=== PATIENT | female | born 1980 | race Caucasian/White ===

== ENCOUNTER → 2016-12-22 | Day surgery (SDC) | payer OTHER ==
[~2016-12-22] VITALS: Ht 152.4 cm; Wt 106.7 kg
[2016-12-22 11:51] LABS: HCT 39.3 % (37.0-47.0); HGB 12.9 g/dl (12.5-16.0); MCH 25.7 pg (25.0-31.0); MCHC 32.8 g/dL (32.0-36.0); MCV 78.4 fL (78.0-100.0); RBC 5.01 M/uL (4.20-5.40); WBC 9.1 K/uL (4.0-10.5)
[2016-12-22 12:08] LABS: INR 0.93 (0.9-1.2); PROTHROMBIN TIME 12.1 SECONDS (11.7-14.0); PTT 25.2 SECONDS (23.2-31.4)
[2016-12-22 12:25] LABS: ALBUMIN 3.9 g/dL (3.5-5.0); BILIRUBIN - TOTAL 0.2 mg/dL (0.1-1.0); CREATININE 0.4 mg/dL (0.5-1.0); GLOBULIN (CALCULATION) 3.5 g/dL (2.2-4.2); POTASSIUM 3.9 mmol/L (3.5-5.1); TOTAL PROTEIN 7.4 g/dL (6.4-8.3)
[2016-12-22 12:41] LABS: TSH (THYROID STIM HORMONE) 3.62 uIU/mL (0.270-4.200); VITAMIN D (25-OH) 17.26 ng/mL (20.0-)
[2016-12-22 12:45] LABS: FOLIC ACID (SERUM) 11.6 ng/mL (4.4-31.0)
== END | disposition home or self-care (01) ==
LOC: FAS 08:45
PROVIDERS: Surgery
DX: K29.50 Unspecified chronic gastritis without bleeding (principal); D64.9 Anemia, unspecified; F32.9 Major depressive disorder, single episode, unspecified; E66.01 Morbid (severe) obesity due to excess calories; E11.9 Type 2 diabetes mellitus without complications; I10 Essential (primary) hypertension; E78.5 Hyperlipidemia, unspecified; G47.30 Sleep apnea, unspecified; F41.9 Anxiety disorder, unspecified; G43.909 Migraine, unspecified, not intractable, without status migrainosus; E55.9 Vitamin D deficiency, unspecified; K21.9 Gastro-esophageal reflux disease without esophagitis; Z98.890 Other specified postprocedural states; Z79.899 Other long term (current) drug therapy; Z87.891 Personal history of nicotine dependence; Z88.5 Allergy status to narcotic agent; Z68.41 Body mass index [BMI] 40.0-44.9, adult
CPT/HCPCS: 36415; 80053; 80061; 82306; 82607; 82728; 82746; 83036; 83540; 83550; 84425; 84443; 84703; 85610; 85730; 88305; 88312; J2704

== ENCOUNTER 2021-07-02 07:43 | Emergency (ER) | payer OTHER ==
[2021-07-02 08:23] LABS: BILIRUBIN NEGATIVE (NEGATIVE); BLOOD 3+ Ery/uL (NEGATIVE); COLOR YELLOW (YELLOW); GLUCOSE (U) NORMAL (NORMAL); LEUKOCYTES 2+ Leu/uL (NEGATIVE); NITRITE POSITIVE (NEGATIVE); PROTEIN 1+ mg/dL (NEGATIVE); SPECIFIC GRAVITY 1.025 (1.001-1.030); UROBILINOGEN 0.2 mg/dL (0.2-1.0)
[2021-07-02 08:29] LABS: CLARITY HAZY (CLEAR)
[2021-07-02 08:31] LABS: BASOPHIL 0.3 % (0-2); EOSINOPHIL 1.6 % (0-5); HCT 43.9 % (37.0-47.0); HGB 14.2 g/dl (12.5-16.0); LYMPHOCYTE 16.3 % (15-48); MCH 25.8 pg (25.0-31.0); MCHC 32.3 g/dL (32.0-36.0); MCV 79.7 fL (78.0-100.0); MONOCYTE 5.2 % (0-12); MPV 8.9 fL (6.0-9.5); NEUTROPHIL 76.1 % (41-80); NRBC 0; PLT 310 K/uL (150-400); RBC 5.51 M/uL (4.20-5.40); RDW 13.2 % (11.5-14.0); WBC 10.4 K/uL (4.0-10.5)
[2021-07-02 08:31] LABS: URINARY RBC TNTC; URINARY WBC TNTC
[2021-07-02 08:32] LABS: BACTERIA 3+
[2021-07-02 08:51] LABS: ALBUMIN 3.4 g/dL (3.4-5.0); BILIRUBIN - TOTAL 0.3 mg/dL (0.2-1.0); BUN/CREAT RATIO (CALC) 19.6 RATIO; CREATININE 0.46 mg/dL (0.51-0.95); GLOBULIN (CALCULATION) 4.3 g/dL; POTASSIUM 4.1 mmol/L (3.5-5.1); TOTAL PROTEIN 7.7 g/dL (6.4-8.2)
[2021-07-02] MEDS ORDERED: NORCO 5-325 TA1 EACH PO (09:34)
[2021-07-02] MEDS ORDERED: BACTRIM DS TAB1 EACH PO (09:34)
[2021-07-02] MEDS ORDERED: ONDANSETRON ODT4 MG PO (09:34)
== END 2021-07-02 10:11 | disposition home or self-care (01) ==
LOC: FER 07:43
PROVIDERS: Internal Medicine
DX: N39.0 Urinary tract infection, site not specified (principal); R10.9 Unspecified abdominal pain; Z88.5 Allergy status to narcotic agent
CPT/HCPCS: 36415; 80053; 81001; 83690; 84145; 85025; 87076; 87088; 87186; J0696; J1170; J2405; J7040

== ENCOUNTER 2021-07-28 10:19 | Emergency (ER) | payer OTHER ==
[~2021-07-28 10:19] MED LIST: BACTRIM DS TAB1 EACH PO; NORCO 5-325 TA1 EACH PO; ONDANSETRON ODT4 MG PO
[2021-07-28 11:44] LABS: BILIRUBIN NEGATIVE (NEGATIVE); BLOOD NEGATIVE Ery/uL (NEGATIVE); CLARITY CLEAR (CLEAR); COLOR YELLOW (YELLOW); GLUCOSE (U) NORMAL (NORMAL); LEUKOCYTES NEGATIVE Leu/uL (NEGATIVE); NITRITE NEGATIVE (NEGATIVE); PROTEIN NEGATIVE (NEGATIVE); UROBILINOGEN 0.2 mg/dL (0.2-1.0); pH 7.5 (5.0-9.0)
[2021-07-28] MEDS ORDERED: CYCLOBENZAPRINE10 MG PO (11:53)
[2021-07-28] MEDS ORDERED: NAPROXEN500 MG PO (11:53)
== END 2021-07-28 15:47 | disposition home or self-care (01) ==
LOC: FER 10:19
PROVIDERS: Emergency Medicine
DX: M54.50 Low back pain, unspecified (principal); U07.1 COVID-19; Z88.5 Allergy status to narcotic agent
CPT/HCPCS: 81003; 99283